=== PATIENT | female | born 1970 | race Caucasian/White ===

== ENCOUNTER 2020-07-11 18:46 | Emergency (ER) | payer BC, OTHER ==
[2020-07-11 18:58] VITALS: BP 139/91; PULSE 102
--- NOTE | 2020-07-11 19:25 | EDM.PDOC ---
ED HPI GENERAL MEDICAL PROBLEM - General Chief Complaint: General Stated Complaint: HAS LUPUS-NERVES ARE BURNING Time Seen by Provider: 07/11/20 19:21 Source of Information: Reports: Patient History Limitations: Reports: No Limitations - History of Present Illness INITIAL COMMENTS - FREE TEXT/NARRATIVE: Patient arrived ED by private vehicle Onset of symptoms was 07/05/2020 She developed a cough, which has progressed since onset Also states feeling that "my nerves are burning" Describes hyper sensitivity to touch with tingling/mxep-vks-tmuzqua feeling Endorses general malaise and also mild diarrhea States she always has body aches due to lupus, has not noted any acute change or exacerbation of these Denies shortness of breath, fever, altered taste or smell, nausea, vomiting general Pain Score (Numeric/FACES): 7 - Related Data Allergies Allergy/AdvReac Type Severity Reaction Status Date / Time No Known Allergies Allergy Verified 07/11/20 18:58 Home Meds: Home Meds Control. 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: Endocrine/Metabolic History: Reports: Hypothyroidism Dermatologic History: Reports: Other (See Below) Other Dermatologic History: Acne Social & Family History - Tobacco Use Tobacco Use Status *Q: Never Tobacco User - Recreational Drug Use Recreational Drug Use: No ED ROS GENERAL - Review of Systems Review Of Systems: See Below Free Text/Narrative/Comment: Constitutional - no fever; malaise Eyes - no eye pain; no visual disturbance ENT - no rhinorrhea; no congestion; no epistaxis Cardiovascular - no chest pain Respiratory - no shortness of breath; cough Gastrointestinal - no abdominal pain; no nausea; no vomiting; diarrhea Genitourinary - no dysuria Musculoskeletal - no neck pain; no back pain; no extremity injury; myalgia Neurological - no headache; no speech disturbance; no weakness; dysesthesia ED EXAM, GENERAL - Physical Exam Exam: See Below Free Text/Narrative:: Constitutional - awake; alert; no acute distress Head - no facial swelling or weakness Eyes - extra ocular motion intact; conjunctiva normal ENT - no nasal deformity; no epistaxis; normal phonation Neck - no swelling Respiratory - normal respiratory effort; no crackles or wheezing; no stridor Cardiovascular - regular rhythm; normal rate; S1; S2; grade 1/6 systolic murmur GI/Abdomen - normal bowel sounds; soft; no tenderness; no rebound; no guarding; no mass Musculoskeletal - grossly normal strength and motion; no swelling or deformity Skin - warm; dry Neurologic - normal speech; no weakness; gait intact Psychiatric - normal mood and affect; memory and attention normal Course - Vital Signs Text/Narrative:: . Considered etiologies included: cough, bronchitis, weakness, malaise, diarrhea, dysesthesia, neuropathy, viral syndrome, COVID-19 Symptoms and examination were discussed Patient was agreeable with COVID-19 testing Etiology for her dysesthesias was uncertain, though association with COVID-19 was surmised She requested discharge while awaiting COVID-19 test results Consideration for self-isolation was advised Patient was felt to be stable for outpatient follow-up Return precautions were provided COVID testing resulted positive after patient departed ED Patient was contacted by food writer and informed of results Last Recorded V/S: Last Vital Signs Temp 36.9 C 07/11/20 18:55 Pulse 102 H 07/11/20 18:55 Resp 18 07/11/20 18:55 BP 139/91 H 07/11/20 18:55 Pulse Ox 100 07/11/20 18:55 - Orders/Labs/Meds Labs: Laboratory Tests 07/11/20 Range/Units 19:46 Influenza Type A RNA Negative (NEGATIVE) Influenza Type B RNA Negative (NEGATIVE) SARS-CoV-2 RNA ([facility]) Positive H (NEGATIVE) Departure - Departure Time of Disposition: 20:12 Disposition: Home, Self-Care 01 Clinical Impression: Bronchitis, Viral syndrome, Neuropathy, COVID-19 virus infection - Discharge Information Prescriptions: Gabapentin [Neurontin] 300 mg PO BID #20 cap Instructions: Paresthesia, Neuropathic Pain, Acute Bronchitis, Adult Referrals: Sara Guerra NP [Primary Care Provider] - Forms: ED Department Discharge Additional Instructions: Your symptoms are suggestive of possible COVID-19 infection COVID-19 testing can confirm the disease however a negative test does not fully rule it out Self-isolation is recommended per CDC guidelines Return if condition worsens May resume general activity and regular diet as tolerated Continue usual medications May take GABAPENTIN as prescribed (take only 1 tablet daily for first 1 or 2 days; patient should be tapered over 1 week when being discontinued) Follow-up with primary care/or rheumatology provider is recommended within 3 to 5 days Sepsis Event Note (ED) - Evaluation Sepsis Screening Result: No Definite Risk
[2020-07-11 20:32] LABS: CORONAVIRUS COVID-19 NAA POSITIVE (NEGATIVE)
== END 2020-07-11 20:25 | disposition home or self-care (01) ==
LOC: JD.ED 18:46
DX: U07.1 COVID-19 (principal); J40 Bronchitis, not specified as acute or chronic; B34.9 Viral infection, unspecified; G62.9 Polyneuropathy, unspecified; E03.9 Hypothyroidism, unspecified; Z79.899 Other long term (current) drug therapy
CPT/HCPCS: 0240U; 99283

== ENCOUNTER 2021-07-05 17:18 | Emergency (ER) | payer OTHER ==
[2021-07-05] MEDS ORDERED: Sodium Chloride 0.9% 10 ML Syringe FLUSH PRN (17:35)
[2021-07-05 20:14] VITALS: BP 148/92; PULSE 110
== END 2021-07-05 20:02 | disposition home or self-care (01) ==
LOC: JD.ED 17:18
DX: R07.9 Chest pain, unspecified (principal); E03.9 Hypothyroidism, unspecified; Z79.899 Other long term (current) drug therapy
CPT/HCPCS: 36415; 71045; 80053; 83735; 83880; 84484; 85025; 85379; 85610; 85730; 93005; 99285; J3490

== ENCOUNTER 2022-05-15 09:17 | Emergency (ER) | payer BC, OTHER ==
[2022-05-15] MEDS ORDERED: Prochlorperazine 10 MG/2 ML SDV IVPUSH ONE (09:44)
[2022-05-15] MEDS ORDERED: Lactated Ringers 1,000 ML IV ONE (09:44)
[2022-05-15] MEDS ORDERED: diphenhydrAMINE 50 MG/ML SDV IVPUSH ONE (09:44)
[2022-05-15 13:50] VITALS: BP 134/86; PULSE 74
== END 2022-05-15 13:40 | disposition home or self-care (01) ==
LOC: JD.ED 09:17
DX: G43.909 Migraine, unspecified, not intractable, without status migrainosus (principal); E03.9 Hypothyroidism, unspecified; Z79.899 Other long term (current) drug therapy
CPT/HCPCS: 36415; 70450; 71045; 80053; 82947; 84484; 85025; 85610; 85730; 93005; 96361; 96374; 96375; 99284; J0780; J1200; J7120